=== PATIENT | male | born 1965 | race Caucasian/White ===

== ENCOUNTER 2018-07-20 08:33 | Day surgery (SDC) | payer OTHER ==
[~2018-07-20] VITALS: Ht 180.3 cm; Wt 62.7 kg
[2018-07-20] MEDS ORDERED: CYCLOBENZAPRINE (10:51)
[2018-07-20] MEDS ORDERED: TRAMADOL (10:51)
[2018-07-20] MEDS ORDERED: LISINOPRIL (10:51)
[2018-07-20] MEDS ORDERED: JARDIANCE (10:51)
[2018-07-20] MEDS ORDERED: METFORMIN (10:51)
[2018-07-20] MEDS ORDERED: AMLODIPINE (10:51)
[2018-07-20] MEDS ORDERED: MEGESTROL (10:51)
[2018-07-20 10:57] VITALS: BP 122/76; PULSE 103; RESP 19
[2018-07-20 10:59] VITALS: Ht 180.3 cm; Wt 62.7 kg
--- NOTE | 2018-07-20 11:30 | PREAC ---
Date/Time of Note Date/Time of Note DATE: 07/20/18 TIME: 11:29 Anesthesia Eval and Record Evaluation Time Pre-Procedure Interview DATE: 07/20/18 TIME: 11:29 Age 53 Sex male NPO: 8 hrs Preoperative diagnosis Dysphagia Planned procedure EGD Past Medical History Past Medical History: Includes Cardio: HTN, Dyslipidemia Endo: Diabetes Surgery & Anesthesia Issues No known issue Meds Anticoagulation: No Beta Cong within 24 hr: No Reason Beta Cong not given: Pt. not on B-Cong Reported Medications [Tramadol] No Conflict Check 07/20/18 [Metformin] No Conflict Check 07/20/18 [Megestrol] No Conflict Check 07/20/18 [Lisinopril] No Conflict Check 07/20/18 [Jardiance] No Conflict Check 07/20/18 [Cyclobenzaprine] No Conflict Check 07/20/18 [Amlodipine] No Conflict Check 07/20/18 Meds reviewed: Yes Allergies Coded Allergies: No Known Allergy (Unverified , 07/20/18) Allergies Reviewed: Yes Labs/Studies Labs Reviewed: Reviewed by anesthesiologist test: N/A Studies: ECG (n/a), CXR (n/a) Pre-procedure Exam Last vitals Vital Signs Date Temp Pulse Resp B/P (MAP) Pulse Ox O2 O2 Flow FiO2 Time Delivery Rate 07/20/18 99.0 103 19 122/76 99 Room Air 10:57 (91) Airway: Adequate mouth opening, Adequate thyromental dist Mallampati: Mallampati II Teeth: Normal Lung: Normal Heart: Normal ASA Physical Status ASA physical status: 3 Emergency: None Planned Anesthetic General/MAC: MAC Planned Pain Management Parenteral pain med Pre-operative Attestations Prior to commencing anesthesia and surgery, the patient was re-evaluated, there was verification of: *The patient's identity *The results of appropriate recent lab work and preoperative vital signs *The above evaluation not changing prior to induction *Anesthetic plan, risk benefits, alternative and complications discussed with patient/family; questions answered; patient/family understands, accepts and wishes to proceed. VINNIE DUNLAP MD Jul 20, 2018 11:30
[2018-07-20] MEDS ORDERED: PROPOFOL 40 ML ONE (11:39)
--- NOTE | 2018-07-20 11:43 | PAC ---
Date/Time of Note Date/Time of Note DATE: 07/20/18 TIME: 11:42 Post-Anesthesia Notes Post-Anesthesia Note Last documented vital signs Vital Signs Date Temp Pulse Resp B/P (MAP) Pulse Ox O2 O2 Flow FiO2 Time Delivery Rate 07/20/18 99.0 103 19 122/76 99 Room Air 11:57 (91) Activity: WNL Respiratory function: WNL Cardiovascular function: WNL Mental status: Baseline Pain reasonably controlled: Yes Hydration appropriate: Yes Nausea/Vomiting absent: Yes VINNIE DUNLAP MD Jul 20, 2018 11:43
== END 2018-07-20 15:10 | disposition home or self-care (01) ==
LOC: GIL 08:33 → EDBD 11:00 → GIL 15:10
PROVIDERS: ATTEND Internal Medicine Gastroenterology
DX: K29.50 Unspecified chronic gastritis without bleeding (principal); K22.10 Ulcer of esophagus without bleeding; K20.8 Other esophagitis; I10 Essential (primary) hypertension; E78.5 Hyperlipidemia, unspecified; E11.9 Type 2 diabetes mellitus without complications
CPT/HCPCS: 43239; 82962; 88305; 88312; Z7610